=== PATIENT | male | born 1995 | race Caucasian/White ===

== ENCOUNTER 2016-12-24 18:43 | Observation (INO) | payer OTHER ==
[2016-12-24 20:00] LABS: Hematocrit 45 % (42-52); Hemoglobin 14.9 g/dl (14.0-18.0); Mean Corpuscular HGB Conc 33 g/dl (31-36); Mean Corpuscular Hemoglobin 27 pg (27-31); Mean Corpuscular Volume 81 fL (80-94); Mean Platelet Volume 9 um3 (7.4-10.4); Red Cell Distribution Width 13 % (10.5-15); White Blood Count 6.2 10^3/ul (3.5-10.8)
--- NOTE | 2016-12-24 20:10 | HP ---
H&P (Free Text) History and Physical: PCP: [place]town Date/Time of Evaluation: 12/24/20162014 CC: syncope HPI: Mr Brasher is a 21YO healthy male who while putting groceries away took a drink of water followed by development of non-radiating cramping epigastric discomfort associated with racing heart and sweating, but no SOB, N/V, focal W/N /T, change in speech/swallow, or other issues. He awoke on the floor after only what he estimates to be 20-30seconds during which time he relates a sort of waxing/waning consciousness. He denies head injury. He states he had not eaten or drank fluids today. He admits to a prior episode of syncope >10years ago. Vitals and lab work are stable. ECG shows NSR with a variable SD interval, but no ischemia or significant arrhythmia. CXR is benign. PMedHx denies Ambulatory Orders NK [No Home Medications Reported] 12/24/16 Allergies No Known Allergies Allergy (Verified 12/24/16 19:41) PSurgHx L wrist FX repair SocHx: no tobacco, ~6 alcoholic drinks/week, denies recreational drugs; lives alone; full code status FamHx: strongly positive for CAD with some onset L<age 65 ROS: as above, otherwise reviewed and all were negative Constitutional: NAD, normally developed, well-nourished white male vitals: Vital Signs Temp 36.7 C 12/24/16 18:51 Pulse 75 12/24/16 19:19 Resp 18 12/24/16 19:19 BP 153/78 12/24/16 18:51 Pulse Ox 99 12/24/16 19:19 Intake & Output 12/23/16 12/24/16 12/24/16 23:59 11:59 23:59 Weight 81.647 kg HEENM: atraumatic; sclera/conjunctiva: non-icteric/clear; hearing: clinically intact; oropharynx: clear, mucosa moist Neck: soft tissue: non-tender; thyroid: normal Pulmonary: clear to auscultation bilaterally, good aeration, no accessory muscle use CV: RR/RR, normal S1S2, no carotid bruit, no jugular venous distention, 2+ B DP/ PT, no edema Abdominal: soft, non-distended, non-tender, no rebound/guarding/rigidity, normoactive bowel sounds, no hepatosplenomegaly or masses, no costovertebral angle tenderness Musculoskeletal: general: grossly intact; gait: stable Integumental: normal appearance and texture of exposed skin Psychiatric orientation: AA&O to PPS affect: calm mood: cooperative eye contact: fair to good content: reliable responses: timely insight: good Testing: Lab Results 12/24/16 12/24/16 12/24/16 Range/Units 19:50 19:50 19:50 WBC 6.2 (3.5-10.8) 10^3/ul RBC 5.60 H (4.0-5.4) 10^6/ul Hgb 14.9 (14.0-18.0) g/dl Hct 45 (42-52) % MCV 81 (80-94) fL MCH 27 (27-31) pg MCHC 33 (31-36) g/dl RDW 13 (10.5-15) % Plt Count 238 (150-450) 10^3/ul MPV 9 (7.4-10.4) um3 Neut % (Auto) 71.9 (38-83) % Lymph % (Auto) 16.8 L (25-47) % [place] % (Auto) 8.9 (1-9) % Eos % (Auto) 1.6 (0-6) % Baso % (Auto) 0.8 (0-2) % Absolute Neuts (auto) 4.4 (1.5-7.7) 10^3/ul Absolute Lymphs (auto) 1.0 (1.0-4.8) 10^3/ul Absolute Monos (auto) 0.5 (0-0.8) 10^3/ul Absolute Eos (auto) 0.1 (0-0.6) 10^3/ul Absolute Basos (auto) 0.1 (0-0.2) 10^3/ul Absolute Nucleated RBC 0 10^3/ul Nucleated RBC % 0.1 Sodium 141 (133-145) mmol/L Potassium 4.3 (3.5-5.0) mmol/L Chloride 105 (101-111) mmol/L Carbon Dioxide 28 (22-32) mmol/L Anion Gap 8 (2-11) mmol/L BUN 13 (6-24) mg/dL Creatinine 1.05 (0.67-1.17) mg/dL Est GFR ( Amer) 113.6 (>60) Est GFR (Non-Af Amer) 88.3 (>60) BUN/Creatinine Ratio 12.4 (8-20) Glucose 81 (70-100) mg/dL Lactic Acid 1.5 (0.5-2.0) mmol/L Calcium 9.6 (8.6-10.3) mg/dL Magnesium 2.2 (1.9-2.7) mg/dL Total Bilirubin 1.00 (0.2-1.0) mg/dL AST 15 (13-39) U/L ALT 13 (7-52) U/L Alkaline Phosphatase 45 (34-104) U/L Troponin I 0.00 (<0.04) ng/mL Total Protein 7.2 (6.4-8.9) g/dL Albumin 4.4 (3.2-5.2) g/dL Globulin 2.8 (2-4) g/dL Albumin/Globulin Ratio 1.6 (1-3) TSH Pending ECG, personally reviewed: NSR rate 68, variable SD interval, T-wave inversions III/AVF, artifactual baseline in multiple leads CXR, personally reviewed: IMPRESSION: No radiographic evidence of acute cardiopulmonary disease. Impression: 21M presenting with syncope and abnormal ECG DIAGNOSIS & PLAN Primary syncope w/ abnormal ECG : telemetry : trend troponin : repeat ECG in AM : supportive care : consider cardiology consult in AM pending above : if negative overnight workup, would consider further outpatient monitoring via Holter vs Event monitor Admission Rational: CDU observation for syncope DVTp: AZALIA Code Status: full
[2016-12-24 20:17] LABS: Albumin 4.4 g/dL (3.2-5.2); BUN/Creatinine Ratio 12.4 (8-20); Calcium 9.6 mg/dL (8.6-10.3); EGFR African American 113.6 (>60); EGFR Non-African American 88.3 (>60); Globulin 2.8 g/dL (2-4); Magnesium 2.2 mg/dL (1.9-2.7); Potassium 4.3 mmol/L (3.5-5.0); Total Protein 7.2 g/dL (6.4-8.9)
--- NOTE | 2016-12-24 20:23 | ED ---
Thiago Cowan Benjamin, scribed for John He MD on 12/24/16 at 1944 . Syncope/Near Syncope - HPI Summary HPI Summary: 21yo male c/o having a syncopal episode today around 4-6pm today. Pt states that he had a strenuous day yesterday and hasnt eat or drink all day. Pt felt brief mid sternal CP just before the episode. Pt blacked out, and was out for about 20-30 seconds. After the episode, pt states he was shaking and hallucinating briefly. Pt reports having a syncopal episode about 10 years ago. Pt hit his head upon his syncopal episode. No significant PMHx, and FHx of DC. Pt doesnt smoke, but drinks occasionally. - History Of Current Complaint Chief Complaint: EDSyncope Time Seen by Provider: 12/24/16 19:32 Hx Obtained From: Patient Onset/Duration: Sudden Onset, Lasting Minutes - 20-30 seconds, Resolved Timing: Intermittent Episode Lasting - 20-30 secs Context: Unwitnessed, Loss Of Consciousness Activity At Onset: At Rest Associated Head Trauma: Yes Aggravating Factor(s): Nothing Alleviating Factor(s): Spontaneous Resolution Associated Signs And Symptoms: Chest Pain - Allergies/Home Medications Allergies/Adverse Reactions: Allergies Allergy/AdvReac Type Severity Reaction Status Date / Time No Known Allergies Allergy Verified 12/24/16 19:41 Home Medications: Home Medications NK [No Home Medications Reported] 12/24/16 [History Confirmed 12/24/16] PMH/Surg Hx/FS Hx/Imm Hx Previously Healthy: Yes Infectious Disease History: No Infectious Disease History: Denies: Traveled Outside the [place] in Last 30 Days - Family History Known Family History: Positive: Cardiac Disease Negative: Hypertension, Diabetes - Social History Occupation: Student Lives: Alone Alcohol Use: Occasionally Substance Use Type: Reports: None Smoking Status (MU): Never Smoked Tobacco Review of Systems Constitutional: Negative Eyes: Negative ENT: Negative Positive: Chest Pain Respiratory: Negative Gastrointestinal: Negative Genitourinary: Negative Musculoskeletal: Negative Skin: Negative Positive: Syncope Psychological: Normal All Other Systems Reviewed And Are Negative: Yes Physical Exam Triage Information Reviewed: Yes Vital Signs On Initial Exam: Initial Vitals Temp Pulse Resp BP Pulse Ox 98.9 F 78 20 153/78 99 12/24/16 18:46 12/24/16 18:46 12/24/16 18:46 12/24/16 18:46 12/24/16 18:46 Vital Signs Reviewed: Yes Appearance: Positive: Well-Appearing, No Pain Distress Skin: Positive: Warm Head/Face: Positive: Normal Head/Face Inspection Eyes: Positive: MITUL ENT: Positive: Hearing grossly normal Neck: Positive: Supple Respiratory/Lung Sounds: Positive: Clear to Auscultation, Breath Sounds Present Cardiovascular: Positive: RRR. Negative: Murmur Abdomen Description: Positive: Nontender, Soft Bowel Sounds: Positive: Present Musculoskeletal: Positive: Strength/ROM Intact Neurological: Positive: Sensory/Motor Intact, Alert, Oriented to Person Place, Time, Normal Gait Psychiatric: Positive: Affect/Mood Appropriate - [place]oper Coma Scale Coma Scale Total: 15 Diagnostics - Vital Signs Vital Signs Temp Pulse Resp BP Pulse Ox 12/24/16 19:19 75 18 99 12/24/16 18:51 98.1 F 77 20 153/78 100 12/24/16 18:46 98.9 F 78 20 153/78 99 - Laboratory Lab Results: Lab Results 12/24/16 12/24/16 12/24/16 Range/Units 19:50 19:50 19:50 WBC 6.2 (3.5-10.8) 10^3/ul RBC 5.60 H (4.0-5.4) 10^6/ul Hgb 14.9 (14.0-18.0) g/dl Hct 45 (42-52) % MCV 81 (80-94) fL MCH 27 (27-31) pg MCHC 33 (31-36) g/dl RDW 13 (10.5-15) % Plt Count 238 (150-450) 10^3/ul MPV 9 (7.4-10.4) um3 Neut % (Auto) 71.9 (38-83) % Lymph % (Auto) 16.8 L (25-47) % [place] % (Auto) 8.9 (1-9) % Eos % (Auto) 1.6 (0-6) % Baso % (Auto) 0.8 (0-2) % Absolute Neuts (auto) 4.4 (1.5-7.7) 10^3/ul Absolute Lymphs (auto) 1.0 (1.0-4.8) 10^3/ul Absolute Monos (auto) 0.5 (0-0.8) 10^3/ul Absolute Eos (auto) 0.1 (0-0.6) 10^3/ul Absolute Basos (auto) 0.1 (0-0.2) 10^3/ul Absolute Nucleated RBC 0 10^3/ul Nucleated RBC % 0.1 Sodium 141 (133-145) mmol/L Potassium 4.3 (3.5-5.0) mmol/L Chloride 105 (101-111) mmol/L Carbon Dioxide 28 (22-32) mmol/L Anion Gap 8 (2-11) mmol/L BUN 13 (6-24) mg/dL Creatinine 1.05 (0.67-1.17) mg/dL Est GFR ( Amer) 113.6 (>60) Est GFR (Non-Af Amer) 88.3 (>60) BUN/Creatinine Ratio 12.4 (8-20) Glucose 81 (70-100) mg/dL Lactic Acid 1.5 (0.5-2.0) mmol/L Calcium 9.6 (8.6-10.3) mg/dL Magnesium 2.2 (1.9-2.7) mg/dL Total Bilirubin 1.00 (0.2-1.0) mg/dL AST 15 (13-39) U/L ALT 13 (7-52) U/L Alkaline Phosphatase 45 (34-104) U/L Troponin I 0.00 (<0.04) ng/mL Total Protein 7.2 (6.4-8.9) g/dL Albumin 4.4 (3.2-5.2) g/dL Globulin 2.8 (2-4) g/dL Albumin/Globulin Ratio 1.6 (1-3) TSH Pending Result Diagrams: 12/24/16 19:50 12/24/16 19:50 Lab Statement: Any lab studies that have been ordered have been reviewed, and results considered in the medical decision making process. - Radiology CXR Xray Interpretation: No Acute Changes Radiology Interpretation Completed By: Radiologist - EKG 1851. Cardiac Rate: NL EKG Rhythm: Sinus Rhythm 193. Cardiac Rate: NL - 66bpm EKG Interpretation: sinus arrhythmia with variable AL internals Re-Evaluation - Re-Evaluation First Eval Comment: pt with syncopal episode ekg with variable pr interval will admit. d/ w dr tapia Course/Dx - Diagnoses Provider Diagnoses: Syncope - Physician Notifications Discussed Care Of Patient With: Dr. Viera (hospitalist) for admission. @20 :02. Instructed by Provider To: Admit As Inpatient Discharge - Discharge Plan Condition: Fair Disposition: ADMITTED TO [facility] The documentation as recorded by the Thiago pack Benjamin accurately reflects the service I personally performed and the decisions made by me, John He MD.
[2016-12-24] MEDS ORDERED: Acetaminophen TAB* 325 MG PO PRN (20:28)
[2016-12-24] MEDS ORDERED: Ondansetron INJ* 2 MG/ML VIAL IV PRN (20:28)
[2016-12-24] MEDS ORDERED: CMCS: Melatonin (NF) 3 MG TAB PO PRN (20:28)
--- NOTE | 2016-12-24 20:32 | RAD ---
INDICATION: Syncope COMPARISON: None TECHNIQUE: PA and lateral views of the chest were obtained. FINDINGS: The heart and mediastinum are normal in size and contour. The lungs are grossly clear. There is no evidence of large pleural effusion. Visualized bones are normal for the patient's age. There is no radiographic evidence of free air beneath the diaphragm IMPRESSION: No radiographic evidence of acute cardiopulmonary disease.
[2016-12-24 20:51] LABS: TSH (Thyroid Stimulating Horm) 0.6 mcIU/mL (0.34-5.60)
[2016-12-24 22:49] LABS: Urine Bilirubin Negative (Negative); Urine Glucose Negative (Negative); Urine Nitrite Negative (Negative)
[2016-12-24 22:57] LABS: Benzodiazepine Urine Screen None Detected (None Detect)
[2016-12-25] MEDS ORDERED: Omeprazole CAP* 20 MG PO SCH (06:00)
[2016-12-25] MEDS ORDERED: NS 0.9% 1000 ML* 1,000 ML IV ONE (10:09)
--- NOTE | 2016-12-25 10:16 | PN ---
Subjective Date of Service: 12/25/16 Interval History: This is an otherwise healthy 21 yo male who presented to the hospital after a syncopal episode. Circumstances sounded vagal in origin. EKG demonstrated variable DC interval however and he was subsequently admitted for telemetry monitoring. Patient reports that he is feeling well this am. No dizziness or other presyncopal symptoms. No chest pain or palpitations. Objective Active Medications: Acetaminophen (Tylenol Tab*) 650 mg PO Q6H PRN PRN Reason: FEVER/PAIN Sodium Chloride (Ns 0.9% 1000 Ml*) 1,000 mls @ 1,000 mls/hr IV .PER RATE ONE Stop: 12/25/16 11:08 Melatonin (Melatonin (Nf)) 3 mg PO BEDTIME PRN; Protocol PRN Reason: Sleep Omeprazole (Prilosec Cap*) 20 mg PO DAILY@0600 ENDER Last Admin: 12/25/16 06:58 Dose: Not Given Ondansetron HCl (Zofran Inj*) 4 mg IV Q6H PRN PRN Reason: NAUSEA Vital Signs: Temp Pulse Resp BP Pulse Ox 98.9 F 93 16 133/76 99 12/25/16 07:52 12/25/16 10:10 12/25/16 07:52 12/25/16 10:10 12/25/16 07:52 Oxygen Devices in Use Now: None Appearance: Well appearing young gentleman in NAD. Accompanied by his father. Neck: NL Appearance and Movements; NL JVP Respiratory: Symmetrical Chest Expansion and Respiratory Effort, Clear to Auscultation Cardiovascular: NL Sounds; No Murmurs; No JVD, RRR Abdominal: NL Sounds; No Tenderness; No Distention Extremities: No Edema Skin: No Rash or Ulcers Neurological: Alert and Oriented x 3 Result Diagrams: 12/24/16 19:50 12/24/16 19:50 Additional Lab and Data: . Diagnostic Imaging: EKG - sinus, occasionally short DC interval Tele - sinus richi, occ sinus arrythmia Assess/Plan/Problems-Billing Assessment: This is a 21 yo otherwise healthy male who presented after a syncopal episode. He has an occasional short DC interval observed on initial EKG. - Patient Problems (1) Syncope Comment: History sounds consistent with a vagal episode with a likely orthostatic component Orthostatic VS abnl with increase in HR from 55 to 95 bpm with a change in position from lying to standing position Occasional short DC interval observed on telemetry overnight but no tachydysrhythmias Plan to bolus with 1L NS Requested cardiology consult Echo pending (2) Full code status (3) DVT prophylaxis Comment: Low risk, ambulation Status and Disposition: Observation, pending cardiology consult and echo
[2016-12-25 12:39] VITALS: BP 127/67
--- NOTE | 2016-12-25 12:53 | ECHO ---
Patient: DORITA BLEVINS [facility] Rec#: [id number] : 1995 Date: 12/25/2016 Age: 21y Height: 190.5 cm / 75.0 in Weight: 84.8 kg / 186.9 lbs Sex: M BSA: 2.1 Room#: 435 Admit Date#: 12/24/2016 Type: Inpatient Referring: Diogenes Knight Reading: Mukesh Quinteros MD Supervisor Air Conditioning Installer: Hazel Alvarado RN RDCS Transthoracic Echocardiogram Indication: Syncope BP: 123/60 HR: 61 Rhythm: NSR Findings History: Irregular heart rhythm Technical Comments: The study quality is fair. The patient was in Sinus arrhythmia during the exam. Completed at 1230. Left Ventricle: The left ventricular chamber size is normal.when patient height taken into account. Global left ventricular wall motion and contractility are within normal limits. There is normal left ventricular systolic function. The estimated ejection fraction is 50-55%. Normal left ventricular diastolic filling is observed. Left Atrium: The left atrial chamber size is normal. Right Ventricle: The right ventricular cavity size is normal. The right ventricular global systolic function is normal. Right Atrium: The right atrial cavity size is normal. Aortic Valve: The aortic valve is trileaflet. The aortic valve leaflets are mildly thickened. There is no evidence of aortic regurgitation. There is no evidence of aortic stenosis. Mitral Valve: The mitral valve leaflets are mildly thickened. There is a trace of mitral regurgitation. Tricuspid Valve: The tricuspid valve leaflets are normal. There is trace tricuspid regurgitation. No pulmonary hypertension is noted. There is no tricuspid stenosis. Pulmonic Valve: The pulmonic valve appears normal. There is no evidence of pulmonic regurgitation. There is no pulmonic stenosis. Pericardium: There is no significant pericardial effusion. Aorta: There is no dilatation of the ascending aorta. There is no dilatation of the aortic arch. There is no dilation of the aortic root. Pulmonary Artery: The main pulmonary artery appears normal. Venous: The inferior vena cava appears normal in size. There is a greater than 50% respiratory change in the inferior vena cava dimension. Conclusions There is normal left ventricular systolic function. The estimated ejection fraction is 50-55%. Global left ventricular wall motion and contractility are within normal limits. Normal cardiac chamber sizes. Functionally benign heart valves. There is no prior echocardiogram available to compare with at this time. Measurements Name Value Normal Range RVDdMajor (2D) 4.4 cm (2.2 - 4.4) RAd ISD 4CH 4.9 cm (3.4 - 4.9) RA (A4C)W 4.1 cm (2.9 - 4.6) IVSd (2D) 1 cm (0.6 - 1) LVPWd (2D) 1 cm (0.6 - 1) LVIDd (2D) 5.7 cm (3.6 - 5.4) LVIDs (2D) 4.1 cm - LV FS (2D) 28 % (25 - 45) Aortic Annulus 2.3 cm (1.4 - 2.6) Ao root diameter (2D) 3.1 cm (2.1 - 3.5) Ascending Ao 2.5 cm (2.1 - 3.4) Aortic arch 2 cm (1.8 - 3.4) LA dimension (AP) 2D 3 cm (2.3 - 3.8) LAd ISD 4CH 5.2 cm (2.9 - 5.3) LA ISD 4CH W 4.4 cm (2.5 - 4.5) Name Value Normal Range LA ESV SP 4CH (A/L) 53 ml - LA ESV SP 2CH (A/L) 61 ml - LA ESV BP (A/L) 61 ml - LA ESV BP (A/L) index 28.8 ml/m2 - LA ESV SP 4CH (MOD) 46 ml - LA ESV SP 2CH (MOD) 56 ml - Name Value Normal Range MV E-wave Vmax 0.86 m/sec - MV deceleration time 217 msec - MV A-wave Vmax 0.64 m/sec - MV E:A ratio 1.3 ratio - LV septal e' Vmax 0.15 m/sec - LV lateral e' Vmax 0.15 m/sec - LV E:e' septal ratio 5.7 ratio - LV E:e' lateral ratio 5.7 ratio - Name Value Normal Range AV Vmax 1.1 m/sec - AV VTI 24 cm - AV peak gradient 4.6 mmHg - AV mean gradient 2.6 mmHg - LVOT Vmax 0.86 m/sec - LVOT VTI 20.1 cm - LVOT peak gradient 2.9 mmHg - LVOT mean gradient 1.8 mmHg - LESLEE Vmax 1.4 m/sec - Name Value Normal Range TR Vmax 2.4 m/sec - TR peak gradient 23 mmHg - RAP 3 mmHg - RVSP 26 mmHg - IVC diameter 1.5 cm - Name Value Normal Range PV Vmax 0.75 m/sec -
--- NOTE | 2016-12-25 20:59 | CONS ---
CC: Dr. Rick Geiger, [place], [place] CARDIOLOGY CONSULTATION: DATE OF CONSULT: 12/25/16 REFERRAL PHYSICIAN: JESSICA Gutierrez. REASON FOR CARDIOLOGY CONSULTATION: Syncope. I was kindly asked to see this patient for syncope and concern for abnormal EKG. HISTORY OF PRESENT ILLNESS: Mr. Brasher is accompanied by his father at his bedside on the telemetry floor with the patient's verbal consent. The patient states that yesterday at about 6 p.m., while he was putting groceries away, he drank seltzer water and had felt pain in his esophagus area with a sharp discomfort. He then fainted with subsequent spontaneous complete resolution and this was an unwitnessed event. No associated shortness of breath. He states he felt shaky at that time. He had not eaten nor drank anything for approximately 20 hours prior to the syncopal event per his recollection. The patient has had one prior episode of syncope 12 years ago while he was at a public bathroom. His father was outside waiting for him and he apparently had fainted post-urination. The patient has been reported to have some type of an irregular heartbeat, but was told by his PCP that it was "normal". PAST MEDICAL HISTORY: None other than as noted above. OUTPATIENT MEDICATIONS: None. ALLERGIES TO MEDICATIONS: None. He denies shrimp or seafood allergy. FAMILY HISTORY: His paternal grandfather of an SD at the age of 53. His paternal uncle had an SD in his 40s. His maternal grandfather had an SD in his 50s who lived to be close to 80. No family history of diabetes. His paternal uncle who has had history of an SD in his 40s also has a history of TIAs. His great grandmother had a history of colon cancer. SOCIAL HISTORY: He does not smoke cigarettes or utilize illicit drugs. He drinks 4 to 6 beers per week. He is single. 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 He does not participate in regular exercise. REVIEW OF SYSTEMS: He denies a personal history of stroke, TIA, cancer, vomiting up blood, coughing up blood, bright red blood per rectum, bleeding stomach ulcers, renal calculi, cholelithiasis, asthma, emphysema, pneumonia, tuberculosis, sleep apnea, home oxygen use, diabetes, hypertension, prior SD, congestive heart failure, cardiac surgery, cardiac murmurs. He states that he has irregular heartbeat, but he is quite vague about the actual symptoms and this has apparently been longstanding. It sounds like he has two things where one being like he can feel his heart racing, but states that it happens "daily" and he no longer notices it. He also randomly feels his heart beating irregularly. He denies psychiatric illnesses. He denies lupus, psoriasis, seizures, Parkinson disease, myasthenia gravis, thyroid disorders, liver disorders, kidney disorders, claudication symptoms, pulmonary emboli, deep venous thrombosis, peripheral arterial disease, peripheral edema, heartburn symptoms. All other review of systems are negative except as described above. PHYSICAL EXAM: General: He is a tall thin man with dry mucosal membranes, in no acute distress. Vital Signs: Height 6 feet and 3 inches, weight 187 pounds. Temperature 98.9 degrees Fahrenheit; pulse is 57; blood pressure 123/60 lying down, 133/76 sitting, and 128/72 standing; respiratory rate 14. HEENT: Shows small 3 cm length thin abrasion seen over left eye on HEENT exam. No infection. No active bleeding.He has dry mucosal membranes. Neck: Veins are not distended. There are no carotid bruits visible. Skin: Warm and perfused. Affect appropriate. He appears oriented. No significant kyphoscoliosis on back exam. Lungs: Clear to auscultation. No wheezes. No rales. Cardiac Exam : S1 and S2. Irregular rate consistent with sinus arrhythmia. No significant murmurs, rubs, or gallops. PMI is nondisplaced. Abdomen: Soft, nondistended, appears benign. Extremities: Without significant edema. Pulses appear grossly intact. DIAGNOSTIC STUDIES/LAB DATA: The 12-lead EKG's are reviewed from admission and since being in the hospital, and they show sinus arrhythmia. No high grade AV blocks seen including on telemetry. No ventricular tachycardia noted. He has normal QT corrected interval of 402 milliseconds. He has normal variant early repolarization pattern consistent with his age and male gender. White blood cell count 6.2, hematocrit 45, and platelet count 238. D-dimer less than 200 ng/mL. Sodium 141, potassium 4.3, chloride 105, bicarbonate 28, BUN 13, creatinine 1.05, magnesium 2.2, ALT 13, troponin 0 x3, TSH 0.60. Chest x-ray report per Radiology states no radiographic evidence of acute cardiopulmonary disease. IMPRESSION: Mr. Brasher is a 21-year-old gentleman with vasovagal syncope in the setting of self-admitted dehydration. He has sinus arrhythmia on EKG and telemetry only with no evidence of high grade AV block nor ventricular dysrhythmias. His heart rate also does seem to augment appropriately on the athletic monitor. PLAN/RECOMMENDATIONS: 1. We will complete echocardiogram, which is pending at this time. As long as it is benign, can discharge the patient home and he may follow up with his primary care physician regarding possible gastroesophageal reflux disease symptoms and vague palpitations. I did counseling services manager the patient for aggressive p.o. fluid intake with which he is in agreement and he was hydrated here with good effect. I have discussed the case with the patient and his father with all questions answered and they are in agreement with these recommendations. I have also discussed the case with JESSICA Castellano of the hospitalist medicine service. Many thanks for this kind cardiac consultation opportunity. Please do not hesitate to contact me if you have any questions or concerns regarding the patient's cardiovascular consultative care. [id number]/CPS #: [id number] MEE
--- NOTE | 2016-12-26 00:40 | DS ---
DISCHARGE SUMMARY: DATE OF ADMISSION: 12/24/16 DATE OF DISCHARGE: 12/25/16 PRIMARY CARE PROVIDER: Out of the area. DISCHARGING PROVIDER: JESSICA Pearl. SUPERVISING PHYSICIAN: Evelyn Wilson MD* (dictated by JESSICA Pearl). CHIEF COMPLAINT: Syncope. PRIMARY DISCHARGE DIAGNOSES: 1. Syncope. 2. Sinus arrhythmia. DISCHARGE MEDICATIONS: None. MEDICATION CHANGES: None. HOSPITAL IMAGIN. EKG showed a sinus rhythm with some variable beats and occasional short GA interval, 2. Echocardiogram demonstrated normal left ventricular ejection fraction with no valvular abnormalities. 3. Chest x-ray shows no acute process. HOSPITAL COURSE: This is an otherwise healthy 21-year-old gentleman who presented to the emergency department after an episode of syncope that had occurred earlier in the day. The patient had been working and that gone without food or water the entire day and had had very little the night before as well. At approximately 5 p.m., the patient drank a carbonated beverage and he said that he felt kind of nauseous and a bubbling sensation in his lower chest and upper abdomen and when he felt that sensation, he syncopized. He is unsure exactly how long he was out for. When he reached the emergency department , his initial labs were unremarkable including a negative D-dimer and troponin. Orthostatic vital signs were positive; however. EKG demonstrated variable GA interval with occasional beats, having a very short GA interval and there is normal interval. For this reason, he was evaluated by Hospital Medicine and subsequently admitted to a period of observation. The patient was maintained on continuous telemetry overnight and received fluid bolus. Requested cardiology evaluation who recommended an echocardiogram, which was within normal limits. Cardiology felt that his EKG was most consistent with a sinus arrhythmia and did not represent any other concerning conduction defect. DISPOSITION AND FOLLOWUP PLAN: The patient is being discharged to home. He is currently a [employer] student and is planning on returning home with his father who is present in the hospital. Cardiology recommends a 24-hour Holter monitor if symptoms persist. Otherwise, further followup or intervention is not necessary other than recommend avoiding dehydration. JESSICA PEARL [id number]/[facility] #: [id number] MEE
== END 2016-12-25 13:56 | disposition home or self-care (01) ==
LOC: ED 18:43 → MEDTELE 20:01
PROVIDERS: ADMIT Hospitalist; ATTEND Internal Medicine
DX: R55 Syncope and collapse (principal); I49.8 Other specified cardiac arrhythmias; R94.31 Abnormal electrocardiogram [ECG] [EKG]; E86.0 Dehydration; R44.3 Hallucinations, unspecified
CPT/HCPCS: 36415; 71020; 80053; 80307; 81003; 83605; 83735; 84443; 84484; 85025; 85379; 93005; 93306; 96360; 99284; G0378